=== PATIENT | male | born 1945 | race Caucasian/White ===

== ENCOUNTER 2020-01-23 10:56 | Emergency (ER) | payer OTHER ==
[~2020-01-23] VITALS: Ht 175.3 cm; Wt 88.6 kg
[~2020-01-23 10:56] MED LIST: AMLO5TAB PO; ATOR40TA71 PO; CALC-1051 PO; HYDR-4069 PO; LOSA50TA64 PO; MULT-955 PO; OMEG1CAP13 PO; PRAZ5CAP PO
[2020-01-23] MEDS ORDERED: cyclobenzaprine 10mg tablet PO ONE (14:20)
[2020-01-23] MEDS ORDERED: ketorolac tromethamine 15mg/ml inj. IM ONE (14:20)
[2020-01-23] MEDS ORDERED: IBUP-1985 PO (15:24)
[2020-01-23 15:32] VITALS: BP 149/85
== END 2020-01-23 15:42 | disposition home or self-care (01) ==
LOC: ER 10:56
DX: M54.41 Lumbago with sciatica, right side (principal); M25.551 Pain in right hip; Z98.890 Other specified postprocedural states; Z79.899 Other long term (current) drug therapy
CPT/HCPCS: 72100; 73502; 96372; 99284; J1885

== ENCOUNTER 2020-03-21 06:53 | Day surgery (SDC) | payer OTHER ==
[2020-03-15 11:08] LABS: BASOPHILS # (AUTO) 0.1 X10'3 (0-0.2); BASOPHILS % (AUTO) 1.1 % (0-1); EOSINOPHILS # (AUTO) 0.1 X10'3 (0-0.9); EOSINOPHILS % (AUTO) 1.8 % (0-6); LYMPHOCYTES # (AUTO) 1.6 X10'3 (1.1-4.8); LYMPHOCYTES % (AUTO) 20.1 % (21-51); MEAN CORPUSCULAR HEMOGLOBIN 31.4 PG (27.0-31.0); MEAN CORPUSCULAR HGB CONC 34.5 g/dL (33.0-36.5); MEAN CORPUSCULAR VOLUME 90.8 FL (78-98); MEAN PLATELET VOLUME 8.7 FL (7.4-10.4); MONOCYTES # (AUTO) 0.7 X10'3 (0-0.9); MONOCYTES % (AUTO) 8.7 % (2-12); NEUTROPHILS # (AUTO) 5.3 X10'3 (1.8-7.7); NEUTROPHILS % (AUTO) 68.3 % (42-75); PRE OP HEMOGLOBIN 15.2 g/dL (14.0-17.9); PRE OP PLATELET COUNT 260 X10'3 (140-440); RED BLOOD COUNT 4.84 X10'6 (4.70-6.10); RED CELL DISTRIBUTION WIDTH 14.9 % (11.5-14.5)
[2020-03-15 11:18] LABS: ALBUMIN 3.8 G/DL (3.4-5.0); ALBUMIN/GLOBULIN RATIO 1.2 (1.1-1.5); ALKALINE PHOSPHATASE 76 IU/L (46-116); BLOOD UREA NITROGEN 18 MG/DL (7-18); BUN/CREATININE RATIO 11.9 (5.4-32.0); CHLORIDE 106 MMOL/L (99-107); CREATININE 1.51 MG/DL (0.60-1.10); PRE OP ALT 45 U/L (30-65); PRE OP ANION GAP 8 (8-16); PRE OP AST 18 U/L (10-37); PRE OP BILIRUB, TOTAL 1.2 MG/DL (0.0-1.0); PRE OP GLUCOSE 120 MG/DL (70-104); PRE OP POTASSIUM 3.6 MMOL/L (3.4-5.1); PRE OP SODIUM 143 MMOL/L (135-145); TOTAL CARBON DIOXIDE 28.7 MMOL/L (24-32); eGFR 45 ML/MIN
[~2020-03-21] VITALS: Ht 175.3 cm; Wt 91.0 kg
[2020-03-21] VITALS (11 sets, daily range): BP systolic 120–168; BP diastolic 47–95
[~2020-03-21 06:53] MED LIST changes: -ATOR40TA71 PO; -CALC-1051 PO; -HYDR-4069 PO; +HYDR-4070 PO; -MULT-955 PO; -OMEG1CAP13 PO; -PRAZ5CAP PO; +ceFAZolin 2gm in dextrose, iso 50 ML IV ONE; +famotidine 20mg tablet PO ONE; +ringers solution, lacted 1,000 ML IV SCH
[2020-03-21] MEDS ORDERED: LIDOcaine 1% 30ml preserv. free vial ONE (07:05)
[2020-03-21] MEDS ORDERED: BUPIVAcaine/PF 2.5 mg/ml (0.25%) 30ml vial ONE (07:05)
[2020-03-21] MEDS ORDERED: glycopyrrolate 0.2mg/ml inj ONE (09:13)
[2020-03-21] MEDS ORDERED: sevoflurane 250ml liquid IH ONE (09:13)
[2020-03-21] MEDS ORDERED: midazolam 2 mg/2 ml injection ONE (09:15)
[2020-03-21] MEDS ORDERED: fentaNYL/PF 50MCG/1 ML 2ML syringe ONE (09:15)
[2020-03-21] MEDS ORDERED: propofol inj 20 ML IV ONE (09:17)
[2020-03-21] MEDS ORDERED: rocuronium 10mg/ml inj IV ONE (09:18)
[2020-03-21] MEDS ORDERED: proCHLORperazine 10 MG/2 ml inj IV PRN (10:10)
[2020-03-21] MEDS ORDERED: ringers solution, lacted 1,000 ML IV SCH (10:10)
[2020-03-21] MEDS ORDERED: meperidine/PF 25mg/ml syringe IV PRN ×3 (10:10)
[2020-03-21] MEDS ORDERED: morphine 4 MG/ML inj SYRINge IV PRN (10:10)
[2020-03-21] MEDS ORDERED: morphine 2 MG/ML inj. syringe IV PRN (10:10)
[2020-03-21] MEDS ORDERED: ondansetron/PF 4mg/2ml inj IV PRN (10:10)
[2020-03-21] MEDS ORDERED: ondansetron/PF 4mg/2ml inj ONE (10:12)
[2020-03-21] MEDS ORDERED: dexamethasone sod phosphate 4mg/ml inj. ONE (10:13)
[2020-03-21] MEDS ORDERED: neostigmine methylsulfate 1 MG/ML 10ml vial ONE (10:14)
[2020-03-21] MEDS ORDERED: HYDROcodone/acetaminophen 5mg/325mg tablet PO PRN (10:35)
--- NOTE | 2020-03-21 10:36 | NUR ---
Received from OR via BED, accompanied by Anesthesiologist. Dr. Javier and report given by Anesthesiolgist. PATIENT WAKING UP, NO S/S OF PAIN, V/S WNL, SCD ON, 20G PIV L AC, BANDAIDS TO ABDOMEN CDI. Addendum: 03/21/20 at 1045 by Naheed Verdugo RN Amended: Links added.
--- NOTE | 2020-03-21 13:45 | NUR ---
PATIENT A&OX4, DENIES PAIN, V/S WNL, NEUROVASCULAR CHECKS INTACT, 20G PIV L AC D/C, SCD OFF, 3 BANDAIDS TO LAP SIGHTS OF ABDOMEN CDI. Catheter placed per Dr. Yates and bladder scan greater than 600ml. I HAVE REVIEWED D/C INSTRUCTIONS WITH PATIENT AND FAMILY HAVE VERBALIZED UNDERSTANDING.PATIENT WAS D/C HOME WITH ALL BELONGINGS AND FAMILY GAVE TRANSPORT HOME.
== END 2020-03-21 13:45 | disposition home or self-care (01) ==
LOC: PAS 06:53
PROVIDERS: ATTEND Surgery
DX: K40.90 Unilateral inguinal hernia, without obstruction or gangrene, not specified as recurrent (principal); K42.9 Umbilical hernia without obstruction or gangrene; Z20.828 Contact with and (suspected) exposure to other viral communicable diseases; I10 Essential (primary) hypertension; F43.10 Post-traumatic stress disorder, unspecified; Z98.890 Other specified postprocedural states; Z79.899 Other long term (current) drug therapy; Z80.51 Family history of malignant neoplasm of kidney
CPT/HCPCS: 36415; 49585; 49650; 80053; 82948; 85025; 87635; 93005; C1781; J1100; J2001; J2250; J2405; J2704; J2710; J3010; J3490; J7120; A4215; A4618

== ENCOUNTER 2020-03-30 15:42 | Emergency (ER) | payer OTHER ==
[~2020-03-30] VITALS: Ht 175.3 cm; Wt 86.4 kg
[~2020-03-30 15:42] MED LIST changes: -ceFAZolin 2gm in dextrose, iso 50 ML IV ONE; -famotidine 20mg tablet PO ONE; -ringers solution, lacted 1,000 ML IV SCH
[2020-03-30 16:04] VITALS: BP 172/105
[2020-03-30] MEDS ORDERED: ondansetron 4mg rapidly disintigrating tab PO ONE (20:15)
[2020-03-30] MEDS ORDERED: traMADol 50MG tablet PO ONE (20:15)
[2020-03-30] MEDS ORDERED: acetaminophen 325mg tablet PO ONE (20:15)
[2020-03-30 20:39] LABS: BASOPHILS # (AUTO) 0.1 X10'3 (0-0.2); BASOPHILS % (AUTO) 0.6 % (0-1); EOSINOPHILS # (AUTO) 0.3 X10'3 (0-0.9); EOSINOPHILS % (AUTO) 2.4 % (0-6); HEMATOCRIT 46.2 % (42.0-52.0); HEMOGLOBIN 15.8 g/dl (14.0-17.9); LYMPHOCYTES # (AUTO) 1.6 X10'3 (1.1-4.8); LYMPHOCYTES % (AUTO) 13.8 % (21-51); MEAN CORPUSCULAR HEMOGLOBIN 31.7 PG (27.0-31.0); MEAN CORPUSCULAR HGB CONC 34.3 g/dL (33.0-36.5); MEAN CORPUSCULAR VOLUME 92.5 FL (78-98); MEAN PLATELET VOLUME 8.6 FL (7.4-10.4); MONOCYTES # (AUTO) 1.2 X10'3 (0-0.9); NEUTROPHILS # (AUTO) 8.6 X10'3 (1.8-7.7); NEUTROPHILS % (AUTO) 73.2 % (42-75); PLATELET COUNT 260 X10'3 (140-440); RED CELL DISTRIBUTION WIDTH 14.9 % (11.5-14.5); WHITE BLOOD COUNT 11.7 X10'3 (4.5-11.0)
[2020-03-30 20:41] LABS: ALANINE AMINOTRANSFERASE 48 U/L (12-78); ALBUMIN 4.1 G/DL (3.4-5.0); ALBUMIN/GLOBULIN RATIO 1.2 (1.1-1.5); ALKALINE PHOSPHATASE 77 IU/L (46-116); ANION GAP 10 (8-16); ASPARTATE AMINO TRANSFERASE 22 U/L (10-37); BILIRUBIN,TOTAL 1.3 MG/DL (0.1-1.0); BLOOD UREA NITROGEN 18 MG/DL (7-18); BUN/CREATININE RATIO 11.8 (5.4-32.0); CALCIUM 9.3 MG/DL (8.5-10.1); CHLORIDE 104 MMOL/L (99-107); CREATININE 1.52 MG/DL (0.60-1.10); GLUCOSE 124 MG/DL (70-104); LIPASE 183 U/L (73-393); POTASSIUM 3.8 MMOL/L (3.5-5.1); SODIUM 142 MMOL/L (135-145); TOTAL PROTEIN 7.4 G/DL (6.4-8.2); eGFR 45 ML/MIN
[2020-03-30 21:17] LABS: CLARITY,URINE SLIGHTLY CLOUDY (Clear); COLOR,URINE YELLOW (Yellow); GLUCOSE, URINE NEGATIVE (Neg); KETONES,URINE NEGATIVE (Neg); LEUKOCYTE ESTERASE ,URINE NEGATIVE (Neg); NITRITES, URINE NEGATIVE (Neg); OCCULT BLOOD,URINE SMALL (Neg); PROTEIN,URINE 30 mg/dl (Neg); UROBILINOGEN,URINE 0.2 E.U/dL (0.2-1.0)
[2020-03-30 21:22] LABS: UA COLLECTION TYPE CLN CATCH MIDSTREAM
[2020-03-30 21:23] LABS: BACTERIA,URINE NONE SEEN /HPF (Neg); SQUAMOUS EPITHELIAL CELL,UR FEW /LPF (FEW); WBC,URINE NONE SEEN /HPF (0-4)
[2020-03-30] MEDS ORDERED: ketorolac trometh inj. 60 MG/2 ML VIAL IM ONE (21:40)
[2020-03-30] MEDS ORDERED: ONDA4TAB6 PO (21:41)
[2020-03-30] MEDS ORDERED: HYDR-3965 PO (21:41)
== END 2020-03-30 21:57 | disposition home or self-care (01) ==
LOC: ER 15:42
DX: N20.0 Calculus of kidney (principal); N28.89 Other specified disorders of kidney and ureter; R10.32 Left lower quadrant pain; R11.0 Nausea; K59.00 Constipation, unspecified; G89.29 Other chronic pain; Z85.9 Personal history of malignant neoplasm, unspecified; Z98.890 Other specified postprocedural states; Z79.899 Other long term (current) drug therapy
CPT/HCPCS: 36415; 74176; 80053; 81001; 83690; 85025; 96372; 99284; J1885